=== PATIENT | female | born 1975 | race Caucasian/White ===

== ENCOUNTER 2017-04-20 16:46 | Outpatient (CLI) | payer BC | END 2017-04-20 16:47 | disposition home or self-care (01) | LOC: HPCALD 16:46 | PROVIDERS: ATTEND Physician Assistant | DX: N39.0 Urinary tract infection, site not specified (principal) | CPT/HCPCS: 87086 ==

== ENCOUNTER 2021-02-18 01:33 | Emergency (ER) | payer BC, SELFPAY | END 2021-02-18 02:50 | disposition home or self-care (01) | LOC: BURERS 01:33 | DX: F41.9 Anxiety disorder, unspecified (principal); I10 Essential (primary) hypertension; Z79.899 Other long term (current) drug therapy | CPT/HCPCS: 93005 ==

== ENCOUNTER 2022-09-08 16:21 | Outpatient (CLI) | payer BC | END 2022-09-08 16:22 | disposition home or self-care (01) | LOC: BURRAD 16:21 | PROVIDERS: ATTEND Nurse Practitioner Family | DX: M54.2 Cervicalgia (principal); M50.322 Other cervical disc degeneration at C5-C6 level | CPT/HCPCS: 72040 ==